=== PATIENT | female | born 1940 | race Caucasian/White ===

== ENCOUNTER → 2017-01-25 | Outpatient (CLI) | payer MEDICARE, BC ==
[~2017-01-25] MED LIST: ARIMIDEX1 MG PO; ASPIR-LOW81 MG PO; ASPIRIN 32325 MG/TAB PO; CALCIUM CARBONATE PO; CENTRUM SILVER1 TA1 PO; FOLIC ACID 40400 MCG PO; FORTAMET500 MG PO; GABAPENTIN PO; IRON TABLETS325 MG PO; LOVAZA1 GM PO; LYRICA 150MG C150 MG PO; NORCO 325 MG-7.1 TAB PO; TYLENOL 500MG500 MG PO; TYLENOL PM PO; VITAMIN B12 PO; VITAMIN D PO; VITAMIN D1000 IU PO
== END ==
LOC: MC.RAD 07:20
DX: Z12.31 Encounter for screening mammogram for malignant neoplasm of breast (principal); Z85.3 Personal history of malignant neoplasm of breast; Z90.11 Acquired absence of right breast and nipple

== ENCOUNTER → 2018-02-10 | Outpatient (CLI) | payer MEDICARE, BC | LOC: MC.RAD 10:26 | DX: Z12.31 Encounter for screening mammogram for malignant neoplasm of breast (principal); Z90.11 Acquired absence of right breast and nipple; Z85.3 Personal history of malignant neoplasm of breast; Z98.890 Other specified postprocedural states ==

== ENCOUNTER → 2019-09-08 | Outpatient (CLI) | payer MEDICARE, BC | LOC: MC.RAD 09:45 | DX: Z12.31 Encounter for screening mammogram for malignant neoplasm of breast (principal); Z90.11 Acquired absence of right breast and nipple ==

== ENCOUNTER → 2021-01-19 | Outpatient (CLI) | payer MEDICARE, BC | LOC: MC.RAD 09:41 | DX: Z12.31 Encounter for screening mammogram for malignant neoplasm of breast (principal); Z86.000 Personal history of in-situ neoplasm of breast; Z98.82 Breast implant status ==

== ENCOUNTER 2024-05-22 12:38 | Inpatient (IN) | payer MEDICARE, BC ==
[~2024-05-22] VITALS: Ht 154.9 cm; Wt 97.7 kg
[~2024-05-22 12:38] MED LIST changes: -CENTRUM SILVER1 TA1 PO; +CENTRUM SILVER1 TAB PO; -FORTAMET500 MG PO; +GLUCOPHAGE XR500 M1 PO; +VITAMIN B12 1541 TAB PO; -VITAMIN B12 PO
[2024-05-22] MEDS ORDERED: NS 1,000 ML IV SCH ×2 (13:00→20:45)
[2024-05-22 13:29] LABS: BASO % 0.2 % (0.0-2.0); EOS # 0.1 K/mm3 (0.0-0.7); EOS % 0.8 % (0.0-4.0); GRAN # 6.1 K/mm3 (1.4-6.5); GRAN % 69.4 % (42.2-75.2); HEMATOCRIT 37.4 % (37.0-47.0); HEMOGLOBIN 12.6 g/dl (12.5-16.0); MEAN CELL VOLUME 96 fl (80.0-100.0); MEAN CORPUSCULAR HEMOGLOBIN 32 pg (27-31); MEAN CORPUSCULAR HGB CONC 34 g/dl (33.0-37.0); MEAN PLATELET VOLUME 9.9 fl (7.4-10.4); MONO # 0.7 K/mm3 (0.1-0.6); MONO % 7.3 % (1.7-9.3); PLATELET COUNT 216 K/mm3 (130-400); RED BLOOD COUNT 3.89 M/mm3 (4.10-5.30); REDCELL DISTRIBUTION WIDTH-CV 12.5 % (11.5-14.5)
[2024-05-22 13:32] LABS: ALANINE AMINOTRANSFERASE 25 U/L (0-55); ALBUMIN 3.9 g/dL (3.4-4.8); ALKALINE PHOSPHATASE 66 U/L (40-150); ANION GAP 14 mmol/L (7-16); AST,SGOT 31 U/L (5-34); BILIRUBIN,TOTAL 0.5 mg/dL (0.2-1.2); BLOOD UREA NITROGEN 13 mg/dL (10-20); CALCIUM 9.9 mg/dL (8.4-10.2); CHLORIDE 103 mEq/L (98-107); CREATININE, serum 1.01 mg/dL (0.57-1.11); GLUCOSE 126 mg/dL (70-99); LIPASE 41 U/L (8-78); POTASSIUM 4.2 mEq/L (3.5-4.5); SODIUM 136 mEq/L (136-145); TOTAL PROTEIN 7.1 g/dl (6.2-8.1)
[2024-05-22 13:52] LABS: TROPONIN-I < 0.010 ng/mL (0.00-0.033)
[2024-05-22 14:38] LABS: PH 6.5 (5.0-8.5); URINE APPEARANCE CLOUDY (CLEAR/HAZY); URINE BLOOD NEGATIVE (NEGATIVE); URINE COLOR Dark Yellow (YELLOW); URINE GLUCOSE NEGATIVE (NEGATIVE); URINE KETONE TRACE (NEGATIVE); URINE NITRATE POSITIVE (NEGATIVE); URINE PROTEIN(semi-quant) 1+ (NEGATIVE)
[2024-05-22] MEDS ORDERED: cefTRIAXone 1 G in Water For Injection,Sterile 10 ML IV ONE (14:45)
[2024-05-22] MEDS ORDERED: Iohexol 300 - 100 ML VIAL IV ONE (15:26)
[2024-05-22] MEDS ORDERED: NS 100 ML IV SCH (15:26)
[2024-05-22 15:45] LABS: COLLECTION METHOD CATHETER
[2024-05-22] MEDS ORDERED: Morphine 4 MG/ML VIAL IV ONE (16:45)
[2024-05-22] MEDS ORDERED: Acetaminophen 325 MG TAB PO PRN (16:45)
[2024-05-22] MEDS ORDERED: Polyethylene Glycol 3350 17 GM PDS PO PRN (16:45)
[2024-05-22] MEDS ORDERED: Docusate Sodium 100 MG CAP PO PRN (16:45)
[2024-05-22] MEDS ORDERED: LR 1,000 ML IV SCH (16:45)
[2024-05-22] MEDS ORDERED: Dextrose 50% Water 25 GM/50 ML SYRINGE IV PRN (17:15)
[2024-05-22] MEDS ORDERED: Dextrose (Glucose) 15 GM (4 x 3.75 GM) Chewable TABLET PACK PO PRN (17:15)
[2024-05-22] MEDS ORDERED: Glucagon 1 MG VIAL IM PRN (17:15)
--- NOTE | 2024-05-22 19:38 | NUR ---
Recieved report from GEORGE Cotton from ED. All questions answered at this time.
[2024-05-22 20:00] VITALS: BP 137/79; PULSE 98; TEMP 98.2
[2024-05-22] MEDS ORDERED: Heparin 5,000 UNITS/ML 1 ML VIAL IV ONE (20:00)
[2024-05-22] MEDS ORDERED: Heparin/D5W 250 ML IV SCH (20:00)
[2024-05-22] MEDS ORDERED: NS 1,000 ML IV ONE (20:00)
[2024-05-22] MEDS ORDERED: Heparin 5,000 UNITS/ML 1 ML VIAL IV PRN (20:00)
--- NOTE | 2024-05-22 20:00 | NUR ---
Patient arrived to room 315 with personal belongings. VS obtained. Rates pain at 5/10 intermintenly, denies need for meds at this time as she states is mainly when she moves. Needs met. Assessment and med rec complete. Medications given. Dr. So arrived at bedside and assessed patient. Discussed with him zosyn and LR are not compatible and patient only has the one site, stated it is okay to switch the LR to NS. Oriented patient to room, call light, phone, and bathroom. Call light and personal items in reach. Bed in low position and bed alarm on. Fall risk precautions in place along with right restricted extremity.
[2024-05-22 20:23] VITALS: BP 137/79; PULSE 99; TEMP 98.2
[2024-05-22 20:50] LABS: PARTIAL THROMBOPLASTIN TIME 32.2 SECONDS (26.0-37.0)
[2024-05-22 21:00] VITALS: BP_SYST 133
[2024-05-22] MEDS ORDERED: Famotidine 20 MG TAB PO SCH (21:00)
[2024-05-22] MEDS ORDERED: Insulin Lispro (HumaLOG) SQ SCH (21:00)
[2024-05-22 23:45] VITALS: BP 133/54; PULSE 88; TEMP 98.2
[2024-05-23] VITALS (12 sets, daily range): BP systolic 92–136; BP diastolic 51–75; PULSE 74–110; TEMP 98.1–98.4
--- NOTE | 2024-05-23 00:25 | NUR ---
PATIENT CARE ASSUMED AT THIS TIME FROM JONAS AND REPORT RECIEVED.
[2024-05-23] MEDS ORDERED: ZESTRIL 10MG10 MG PO (02:29)
[2024-05-23] MEDS ORDERED: PRAVACHOL10 MG PO (02:29)
[2024-05-23] MEDS ORDERED: AMITRIPTYLINE H50 M1 PO (02:30)
[2024-05-23] MEDS ORDERED: NATURE'S BLEND500 M1 PO (02:31)
[2024-05-23] MEDS ORDERED: AZO-CRANBERRY450 MG (02:32)
[2024-05-23] MEDS ORDERED: TYLENOL 325MG325 MG PO (02:33)
[2024-05-23] MEDS ORDERED: VIACTIV PO (02:35)
[2024-05-23] MEDS ORDERED: COLACE 100100 MG/CAP PO (02:35)
[2024-05-23 03:49] LABS: HEMOGLOBIN 12.2 g/dl (12.5-16.0); MEAN CELL VOLUME 93 fl (80.0-100.0); MEAN CORPUSCULAR HEMOGLOBIN 32 pg (27-31); MEAN CORPUSCULAR HGB CONC 35 g/dl (33.0-37.0); MEAN PLATELET VOLUME 9.5 fl (7.4-10.4); PLATELET COUNT 209 K/mm3 (130-400); RED BLOOD COUNT 3.78 M/mm3 (4.10-5.30); REDCELL DISTRIBUTION WIDTH-CV 12.5 % (11.5-14.5)
[2024-05-23 03:50] LABS: HEMATOCRIT 35.3 % (37.0-47.0)
[2024-05-23 04:09] LABS: CALCIUM 8.4 mg/dL (8.4-10.2); CREATININE, serum 1.16 mg/dL (0.57-1.11); POTASSIUM 4.1 mEq/L (3.5-4.5)
--- NOTE | 2024-05-23 04:33 | NUR ---
HOSPITALIST NUZHAT PIERCE INFORMED OF HIGH CRITICAL HEPARIN XA OF 1.99 AND NO NEW ORDERS RECIEVED EXCEPT TO FALLOW PROTOCOL.
--- NOTE | 2024-05-23 05:00 | NUR ---
HEPARIN TURNED OFF PER PROTOCOL AT THIS TIME. HEPARIN XA AND PTT ORDERED FOR 0700 PER PROTOCOL.
[2024-05-23 05:16] LABS: BAND 20 % (0-10); LYMPHOCYTE 11 % (20.0-51.0); NEUTROPHILS 64 % (42.0-75.2); PLATELET ESTIMATE NORMAL (NORMAL)
--- NOTE | 2024-05-23 06:59 | NUR ---
Bedside report received from GEORGE Stratton. Pt resting in bed awake with no complaints. Heparin gtt stopped at this time waiting for HepXA lab draw. Pt has no request at this time. Call light within reach and fall precautions in place.
[2024-05-23 07:54] LABS: PARTIAL THROMBOPLASTIN TIME 167.7 SECONDS (26.0-37.0)
--- NOTE | 2024-05-23 08:23 | NUR ---
Pt awake in bed watching TV. Shift assessment completed. VSS. Heparing gtt infusing into Lt forearm with no complications. Dr. Dhaliwal notified by phone of critical lab PTT 167.7 and Hep Xa 0.87, no new orders at this time. Pt denies pain at this time rating 0/10. Pt ambulates in room x1 to BSC and back to bed with no complications. Pt has no request at this time. Call light within reach and fall precautions in place.
--- NOTE | 2024-05-23 11:25 | NUR ---
SW met with patient to complete intake/discharge planning. Patient provides she lives in [facility] alone. Next of kin is son Alton Mai [phone], or [phone] whom patient provides is one of her appointed DPOA/HC. Patient provides she is independent with ADLs, does not utilize DME, nor home health services at this time. Patient states PCP is Dr. Parr and pharmacy is [facility]. Patient provides she plans to return to her home upon discharge. SW will continue to follow. Discharge plan:home
--- NOTE | 2024-05-23 16:33 | NUR ---
Dr. Dhaliwal notified by phone of critcal HepXa of 0.93. No new orders at this time. Protocol followed.
--- NOTE | 2024-05-23 19:01 | NUR ---
Bedside report given to GEORGE Esposito. Pt resting in bed visiting with family at bedside. Call light within reach.
--- NOTE | 2024-05-23 20:30 | NUR ---
UPON SHIFT ASSESSMENT, RADHA WAS AWAKE IN BED AND AXO X 4. SEVERAL FAMILY MEMBERS HAVE VISITED AND HAVE JUST LEFT. PATIENT DENIES PAIN AND IS URINATING YELLOW CLEAR URINE. SHE DENIES BLOODY OR TARRY STOOLS AND HAS TOLERATED FULL LIQUID DINNER TRAY CONSUMING 75%. 75 NS RUNNING WITH 1200 UNITS/HR HEP GTTS IN LT FA IV. VS ARE WNL. STATES NO NEEDS AT THIS TIME. CALL LIGHT WITHIN REACH AND BED ALARM ON.
--- NOTE | 2024-05-23 23:40 | NUR ---
HEPXa RESULT-0.46-GOAL. PER PROTOCOL, NO ADJUSTMENTS TO GTTS MADE. VERIFIED WITH CHARGE NURSE FRANCHESKA.
[2024-05-24] VITALS (11 sets, daily range): BP systolic 92–143; BP diastolic 60–81; PULSE 77–90; TEMP 97.9–98.4
[2024-05-24 07:46] LABS: HEMOGLOBIN 10.3 g/dl (12.5-16.0); MEAN CELL VOLUME 96 fl (80.0-100.0); MEAN CORPUSCULAR HEMOGLOBIN 32 pg (27-31); MEAN CORPUSCULAR HGB CONC 34 g/dl (33.0-37.0); MEAN PLATELET VOLUME 9.6 fl (7.4-10.4); PLATELET COUNT 151 K/mm3 (130-400); RED BLOOD COUNT 3.18 M/mm3 (4.10-5.30); REDCELL DISTRIBUTION WIDTH-CV 12.7 % (11.5-14.5)
[2024-05-24 07:51] LABS: HEMATOCRIT 30.4 % (37.0-47.0)
[2024-05-24 08:10] LABS: CREATININE, serum 0.9 mg/dL (0.57-1.11); POTASSIUM 3.9 mEq/L (3.5-4.5)
--- NOTE | 2024-05-24 10:20 | NUR ---
HepXa resulted- Heparin gtt continues to infuse (no change in rate) as order per protocol.
--- NOTE | 2024-05-24 10:45 | NUR ---
Assessment completed. A/O x4. IVF and Heparin d/c'd per Dr. Dhaliwal. Reports back pain 10/19 but declines offer for pain medication. RUE restriction in place due to breast cancer history with mastectomy. Denies needs at this time.
[2024-05-24] MEDS ORDERED: Apixaban 5 MG TABLET PO SCH (12:48)
--- NOTE | 2024-05-24 16:25 | NUR ---
Pt sitting up in chair. A/O x4. Pt blood sugar 62. Oragne juice given. Denies s/s hypoglycemia. Will recheck in 15 minutes. Dinner tray ordered.
--- NOTE | 2024-05-24 16:43 | NUR ---
BS 57. Pt continues to be asymptomatic. 2 orange juices given to patient.
[2024-05-24] MEDS ORDERED: Cefuroxime 250 MG TAB PO SCH (17:00)
--- NOTE | 2024-05-24 17:21 | NUR ---
BS now 88. Pt continues to sit up in chair without complaints. Dinner tray just arrived and patient now eating full liquid dinner.
--- NOTE | 2024-05-24 18:58 | NUR ---
Pt resting in bed, watching tv. Rates pain 1/10 to back. Bedside report given to Milagros Potter RN.
--- NOTE | 2024-05-24 21:42 | NUR ---
UPON SHIFT ASSESSMENT, RADHA WAS AWAKE IN BED AND WORKING ON A CROSSWORD PUZZLE. SHE DENIES ABDOMINAL PAIN AND DYSURIA AT THIS TIME. SHE IS PASSING GAS AND HAVING BM, DENIES BLOODY OR TARRY STOOLS. VS ARE WNL. CALL LIGHT WITHIN REACH, BED ALRAM ON.
[2024-05-25] VITALS (9 sets, daily range): BP systolic 131–152; BP diastolic 66–90; PULSE 67–82; TEMP 97.8–98.6
--- NOTE | 2024-05-25 05:59 | NUR ---
PATIENT HAD NO EMERGENT STATUS CHANGES THROUGHOUT THE NIGHT AND SLEPT SOUNDLY. RADHA LIKELY TO DISCHARGE TODAY. CALL LIGHT WITHIN REACH BEDALARM ON.
[2024-05-25 06:39] LABS: BASO % 0.2 % (0.0-2.0); EOS # 0.2 K/mm3 (0.0-0.7); EOS % 2.8 % (0.0-4.0); GRAN # 3.4 K/mm3 (1.4-6.5); GRAN % 59.5 % (42.2-75.2); LYMPH # 1.6 K/mm3 (1.2-3.4); LYMPH % 28.3 % (20.0-51.0); MEAN CELL VOLUME 94 fl (80.0-100.0); MEAN CORPUSCULAR HGB CONC 35 g/dl (33.0-37.0); MEAN PLATELET VOLUME 9.6 fl (7.4-10.4); MONO # 0.5 K/mm3 (0.1-0.6); MONO % 8.8 % (1.7-9.3); PLATELET COUNT 116 K/mm3 (130-400); RED BLOOD COUNT 3.03 M/mm3 (4.10-5.30); REDCELL DISTRIBUTION WIDTH-CV 12.5 % (11.5-14.5)
[2024-05-25 06:45] LABS: HEMATOCRIT 28.5 % (37.0-47.0); HEMOGLOBIN 9.9 g/dl (12.5-16.0); MEAN CORPUSCULAR HEMOGLOBIN 33 pg (27-31)
[2024-05-25 07:01] LABS: CALCIUM 8.4 mg/dL (8.4-10.2); CREATININE, serum 0.8 mg/dL (0.57-1.11); POTASSIUM 4.2 mEq/L (3.5-4.5)
--- NOTE | 2024-05-25 09:32 | NUR ---
Patient sitting up in chair, alert and oriented x 4, VSS. Denies any pain or discomfort. States some loose stools. CDIFF ordered. Awaiting for sample. Assessment completed, meds given. No further needs at this time. Call light within reach.
[2024-05-25 14:38] LABS: CLOSTRIDIUM DIFF A/B NEG
[2024-05-25 14:38] LABS: BASO % 0.3 % (0.0-2.0); EOS # 0.2 K/mm3 (0.0-0.7); EOS % 3.2 % (0.0-4.0); GRAN # 3.1 K/mm3 (1.4-6.5); GRAN % 53.4 % (42.2-75.2); HEMOGLOBIN 10.5 g/dl (12.5-16.0); LYMPH # 1.9 K/mm3 (1.2-3.4); LYMPH % 32.9 % (20.0-51.0); MEAN CELL VOLUME 94 fl (80.0-100.0); MEAN CORPUSCULAR HEMOGLOBIN 32 pg (27-31); MEAN CORPUSCULAR HGB CONC 35 g/dl (33.0-37.0); MEAN PLATELET VOLUME 9.2 fl (7.4-10.4); MONO # 0.6 K/mm3 (0.1-0.6); PLATELET COUNT 146 K/mm3 (130-400); RED BLOOD COUNT 3.24 M/mm3 (4.10-5.30); REDCELL DISTRIBUTION WIDTH-CV 12.5 % (11.5-14.5)
[2024-05-25 14:39] LABS: HEMATOCRIT 30.3 % (37.0-47.0)
[2024-05-25] MEDS ORDERED: ELIQUIS 5MG PO (14:53)
[2024-05-25] MEDS ORDERED: CEFTIN 250250 MG/TAB PO (14:55)
--- NOTE | 2024-05-25 16:44 | NUR ---
Patient was provided with discharge information, all questions answered. IV access was discontinued.
--- NOTE | 2024-05-25 17:01 | NUR ---
agriculture worker was notified patient would be medically ready for discharge today after some labs result. SW met with patient and discussed home health services. Patient stated she did not feel she would need them at this time. SW explained if she wanted those services when she returns home she can get them established through her PCP. Patient understood. SW reviewed the important message from [employer]. Patient understood, signed the form. SW made a copy, placed original in chart and provided copy to patient. Patient reported her son would be transporting her home. Discharge plan: Home
[2024-05-25] MEDS ORDERED: Pravastatin 20 MG TAB PO SCH (21:00)
== END 2024-05-25 18:30 | disposition home or self-care (01) | DRG 393 ==
LOC: COL.ER 12:38 → MEDICAL 16:36
PROVIDERS: Physician Assistant; ADMIT Internal Medicine
DX: K55.9 Vascular disorder of intestine, unspecified (principal); E11.10 Type 2 diabetes mellitus with ketoacidosis without coma; N39.0 Urinary tract infection, site not specified; N17.9 Acute kidney failure, unspecified; R19.7 Diarrhea, unspecified; D64.9 Anemia, unspecified; D69.6 Thrombocytopenia, unspecified; I10 Essential (primary) hypertension; E78.5 Hyperlipidemia, unspecified; Z79.4 Long term (current) use of insulin; E11.40 Type 2 diabetes mellitus with diabetic neuropathy, unspecified; M50.30 Other cervical disc degeneration, unspecified cervical region
CPT/HCPCS: J0696; J1644; J2270; J2543; J7030; J7120; Q9967